=== PATIENT | female | born 1965 | race Caucasian/White ===

== ENCOUNTER 2020-01-03 04:30 | Emergency (ER) | payer BC ==
[2020-01-03] MEDS ORDERED: Labetalol 100 MG/20 ML MDV IVPUSH ONE (04:47)
[2020-01-03] MEDS ORDERED: Labetalol 20 MG/4 ML Syringe ONE (04:51)
[2020-01-03] MEDS ORDERED: Labetalol 20 MG/4 ML Syringe IVPUSH ONE (04:54)
--- NOTE | 2020-01-03 05:01 | EDM.PDOC ---
ED HPI GENERAL MEDICAL PROBLEM - General Chief Complaint: ENT Problem Stated Complaint: [facility] Time Seen by Provider: 01/03/20 04:40 Source of Information: Reports: Patient, EMS History Limitations: Reports: No Limitations - History of Present Illness INITIAL COMMENTS - FREE TEXT/NARRATIVE: 54-year-old female with poorly treated hypertension presents with a left-sided epistaxis for the past 45 minutes. She has fairly frequent nosebleeds which she can usually get them stopped, this one has been very heavy and persistent. After not being able to get it stopped for 20 minutes, the ambulance was called and she was transported in from [place]. The left side was still bleeding very briskly on arrival. She is on daily metoprolol which she does not take consistently, she does not know the dose, her blood pressure on arrival was 232/112. EMS reported systolic blood pressures around 190. She has no headache, visual complaints, chest pain or shortness of breath. 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: Musculoskeletal History: Reports: Back Pain, Chronic, Fracture Neurological History: Reports: Migraines - Infectious Disease History Infectious Disease History: Reports: Chicken Pox, Mumps - Past Surgical History HEENT Surgical History: Reports: Adenoidectomy, Tonsillectomy Social & Family History - Family History Family Medical History: Noncontributory - Tobacco Use Smoking Status *Q: Never Smoker - Caffeine Use Caffeine Use: Reports: Coffee - Recreational Drug Use Recreational Drug Use: No ED ROS ENT - Review of Systems Review Of Systems: See Below Constitutional: Denies: Fever, Chills HEENT: Reports: Nosebleed Respiratory: Denies: Shortness of Breath, Cough Cardiovascular: Denies: Chest Pain GI/Abdominal: Reports: Nausea. Denies: Abdominal Pain, Vomiting Skin: Reports: No Symptoms Neurological: Denies: Headache Psychiatric: Reports: No Symptoms ED EXAM, ENT - Physical Exam Exam: See Below Exam Limited By: No Limitations General Appearance: Alert, Anxious, Mild Distress Eye Exam: Left Eye: Other (Some blood is escaping from the left tear duct) Head: Atraumatic Respiratory/Chest: No Respiratory Distress Cardiovascular: Regular Rate, Rhythm Neurological: Alert, Oriented Psychiatric: Anxious Skin: Warm, Dry Course - Vital Signs Last Recorded V/S: Last Vital Signs Temp 97.8 F 01/03/20 04:37 Pulse 84 01/03/20 05:29 Resp 20 01/03/20 04:37 BP 163/97 H 01/03/20 05:29 Pulse Ox 97 01/03/20 04:37 - Orders/Labs/Meds Labs: Laboratory Tests 01/03/20 01/03/20 Range/Units 04:55 04:55 WBC 8.1 (4.5-11.0) K/uL RBC 4.81 (3.30-5.50) M/uL Hgb 13.8 (12.0-15.0) g/dL Hct 41.4 (36.0-48.0) % MCV 86 (80-98) fL MCH 29 (27-31) pg MCHC 33 (32-36) % Plt Count 305 (150-400) K/uL Neut % (Auto) 57 (36-66) % Lymph % (Auto) 32 (24-44) % Power % (Auto) 9 H (2-6) % Eos % (Auto) 2 (2-4) % Baso % (Auto) 1 (0-1) % Sodium 138 L (140-148) mmol/L Potassium 3.6 (3.6-5.2) mmol/L Chloride 102 (100-108) mmol/L Carbon Dioxide 27 (21-32) mmol/L Anion Gap 12.6 (5.0-14.0) mmol/L BUN 17 (7-18) mg/dL Creatinine 0.9 (0.6-1.0) mg/dL Est Cr Clr Drug Dosing 70.41 mL/min Estimated GFR (MDRD) > 60 (>60) Glucose 155 H (74-106) mg/dL Calcium 8.7 (8.5-10.1) mg/dL Meds: Medications Discontinued Medications Generic Name Dose Route Start Last Admin Trade Name Constantino PRN Reason Stop Dose Admin Doxycycline Hyclate 200 mg 01/03/20 05:44 01/03/20 05:50 Vibramycin PO 01/03/20 05:45 200 mg ONETIME ONE Administration Labetalol HCl 20 mg 01/03/20 04:47 01/03/20 04:55 Normodyne IVPUSH 01/03/20 04:48 Not Given ONETIME ONE Protocol Labetalol HCl Confirm 01/03/20 04:51 01/03/20 05:03 Normodyne Administered 01/03/20 04:52 Not Given Dose 20 mg .ROUTE .STK-MED ONE Labetalol HCl 20 mg 01/03/20 04:54 01/03/20 04:54 Normodyne IVPUSH 01/03/20 04:55 20 mg NOW ONE Administration Protocol - Re-Assessments/Exams Free Text/Narrative Re-Assessment/Exam: 01/03/20 05:02 Patient had her nose cleared by briskly blowing her nose, then a 7.5 cm rapid Rhino was placed in the left nares. It was inflated and the bleeding was controlled. Her blood pressure came down to 191/132, she was given 20 mg of IV labetalol and CBC and BMP were obtained. 01/03/20 05:28 There continued to be good hemostasis with the rapid Rhino, hemoglobin and white count were normal as well as electrolytes. Blood pressure normalized to 169/73. CBC and BMP are normal. Departure - Departure Time of Disposition: 06:00 Disposition: Home, Self-Care 01 Clinical Impression: Left-sided epistaxis Hypertension Qualifiers: Hypertension type: essential hypertension Qualified Code(s): I10 - Essential (primary) hypertension - Discharge Information Instructions: Nosebleed, Ipdw-my-Oows, Hypertension, Adult Referrals: PCP,None [Primary Care Provider] - Forms: ED Department Discharge Care Plan Goals: Return Saturday morning for removal of the packing. Return sooner if significant bleeding is occurring around the packing or out the other side of the nose. Take your hypertension medicine every day as prescribed. Sepsis Event Note (ED) - Evaluation Sepsis Screening Result: No Definite Risk
[2020-01-03] MEDS ORDERED: Doxycycline 100 MG Cap PO ONE (05:44)
== END 2020-01-03 07:15 | disposition home or self-care (01) ==
LOC: JP.ED 04:30
DX: R04.0 Epistaxis (principal); I10 Essential (primary) hypertension; Z79.82 Long term (current) use of aspirin; Z79.899 Other long term (current) drug therapy
CPT/HCPCS: 30903; 36415; 80048; 85025; 96374; 99283; A9270; J3490

== ENCOUNTER 2020-01-10 21:23 | Emergency (ER) | payer BC ==
--- NOTE | 2020-01-10 21:44 | EDM.PDOC ---
ED HPI GENERAL MEDICAL PROBLEM - General Chief Complaint: ENT Problem Stated Complaint: [facility] Time Seen by Provider: 01/10/20 21:25 Source of Information: Reports: Patient, EMS History Limitations: Reports: No Limitations - History of Present Illness INITIAL COMMENTS - FREE TEXT/NARRATIVE: 54-year-old female who I placed a rapid Rhino in the left nares 6 days ago for epistaxis has done well since the packing was removed 2 days later. This evening however she was just bending forward and redeveloped bleeding in the left nares and was having difficulty controlling it so called EMS. It stopped in route to the hospital. 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: Musculoskeletal History: Reports: Back Pain, Chronic, Fracture Neurological History: Reports: Migraines - Infectious Disease History Infectious Disease History: Reports: Chicken Pox, Measles, Mumps - Past Surgical History HEENT Surgical History: Reports: Adenoidectomy, Tonsillectomy Social & Family History - Family History Family Medical History: Noncontributory - Tobacco Use Smoking Status *Q: Never Smoker Second Hand Smoke Exposure: No - Caffeine Use Caffeine Use: Reports: Coffee - Alcohol Use Days Per Week of Alcohol Use: 0 - Recreational Drug Use Recreational Drug Use: No ED ROS ENT - Review of Systems Review Of Systems: See Below Constitutional: Denies: Fever, Chills Respiratory: Denies: Shortness of Breath Cardiovascular: Denies: Chest Pain GI/Abdominal: Reports: Nausea Skin: Reports: No Symptoms Hematologic/Lymphatic: Reports: Other (Hemoglobin was checked in the clinic this week and was normal) Free Text/Narrative/Comment: She is taking her blood pressure medication this week as prescribed and it has been controlled ED EXAM, ENT - Physical Exam Exam: See Below Exam Limited By: No Limitations General Appearance: Alert, No Apparent Distress Eye Exam: Bilateral Eye: Normal Inspection Nose: Other (Fresh clot is present in the left nares, no active bleeding) Head: Atraumatic Respiratory/Chest: No Respiratory Distress Cardiovascular: Regular Rate, Rhythm Neurological: Alert, Oriented Psychiatric: Normal Affect, Normal Mood Skin: Warm, Dry Course - Vital Signs Last Recorded V/S: Last Vital Signs Temp 97.5 F 01/10/20 21:30 Pulse 113 H 01/10/20 21:30 Resp 16 01/10/20 21:30 BP 168/93 H 01/10/20 21:30 Pulse Ox 97 01/10/20 21:30 - Re-Assessments/Exams Free Text/Narrative Re-Assessment/Exam: 01/10/20 22:55 Patient was observed for almost 2 hours and had no additional bleeding, she gently blew clots out of her left nares and it did not reinitiate the bleeding. If bleeding restarts she will use external pressure and return if she cannot get control. On discharge she could breathe freely through each nostril and had no bleeding. Departure - Departure Time of Disposition: 23:06 Disposition: Home, Self-Care 01 Clinical Impression: Left-sided nosebleed - Discharge Information Instructions: Nosebleed, Adult Referrals: PCP,None [Primary Care Provider] - Forms: ED Department Discharge Care Plan Goals: Consider keeping the nose moist with [facility] [place] or saline nasal spray. Apply external pressure if bleeding recurs and recheck at the clinic to set up an ENT referral if problems continue. Return anytime if bleeding recurs and is uncontrolled. Sepsis Event Note (ED) - Evaluation Sepsis Screening Result: No Definite Risk - Focused Exam Vital Signs: Vital Signs Temp Pulse Resp BP Pulse Ox 01/10/20 21:30 97.5 F 113 H 16 168/93 H 97 01/10/20 21:27 97.5 F 113 H 16 168/93 H 97
== END 2020-01-10 23:06 | disposition home or self-care (01) ==
LOC: JP.ED 21:23
DX: R04.0 Epistaxis (principal); I10 Essential (primary) hypertension; Z79.82 Long term (current) use of aspirin; Z79.899 Other long term (current) drug therapy
CPT/HCPCS: 99284